=== PATIENT | female | born 1995 | race African-American/Black ===

== ENCOUNTER 2019-01-02 12:36 | Emergency (ER) | payer MEDICAID, OTHER ==
[~2019-01-02] VITALS: Ht 152.4 cm; Wt 81.2 kg
--- NOTE | 2019-01-02 12:45 | NUR ---
"[facility]HMA [facility]" PT AAOX4, PT ON INEZ VSS, PENDING MD KAPOOR
[2019-01-02] MEDS ORDERED: methylPREDNISolone SOD SUCC 125 MG/2ML VIAL IV ONE (13:00)
[2019-01-02] MEDS ORDERED: ALBUTEROL FS 2.5 MG/3 ML VIAL.NEB NEB ONE ×2 (13:00→20:00)
[2019-01-02] MEDS ORDERED: IV NS 0.9% 1,000 ML BAG IV ONE (13:00)
[2019-01-02] MEDS ORDERED: ALBUTEROL FS 2.5 MG/3 ML VIAL.NEB ONE ×3 (13:05→20:04)
[2019-01-02] MEDS ORDERED: methylPREDNISolone SOD SUCC 125 MG/2ML VIAL ONE (13:15)
[2019-01-02] MEDS ORDERED: ALBUTEROL FS 2.5 MG/3 ML VIAL.NEB CONTNEB ONE (14:30)
[2019-01-02] MEDS ORDERED: LORAZEPAM INJ 2 MG/ML VIAL ONE (15:52)
[2019-01-02] MEDS ORDERED: LORAZEPAM INJ 2 MG/ML VIAL IV ONE (16:00)
--- NOTE | 2019-01-02 16:24 | NUR ---
PER [facility], IF NO BED/HOSPITAL BY 2HRS PT CAN BE ADMITTED TO [facility]
--- NOTE | 2019-01-02 17:24 | NUR ---
PT GOING TO [facility] ROOM 312. REPORT TO BONI JIANG. [phone] PENDING AMBULANCE TRANSFER INFO.
--- NOTE | 2019-01-02 18:08 | NUR ---
[facility] ETA [id number]
--- NOTE | 2019-01-02 19:37 | NUR ---
[facility] UPDATED ETA WITHIN 30-45 MINS
--- NOTE | 2019-01-02 19:57 | NUR ---
CALLED FOR BREATHING [facility]
--- NOTE | 2019-01-02 20:06 | NUR ---
REPORT GIVEN TO ESTRADA MOCTEZUMA AT [facility]
[2019-01-02] MEDS ORDERED: ACETAMINOPHEN ES 500 MG TABLET ONE (20:15)
[2019-01-02] MEDS ORDERED: ACETAMINOPHEN ES 500 MG TABLET PO ONE (20:30)
[2019-01-02] MEDS ORDERED: LORAZEPAM 1 MG TABLET ONE (20:46)
[2019-01-02] MEDS ORDERED: LORAZEPAM 1 MG TABLET PO ONE (21:00)
[2019-01-02 21:15] VITALS: BP 167/65
--- NOTE | 2019-01-02 21:15 | NUR ---
PT TRANSPORTED TO [facility] VIA PRIVATE AMBULANCE, PT LEFT IN STABLE CONDITION, VSS, NAD NOTED. REPORT GIVEN TO STAFF.
== END 2019-01-02 21:16 | disposition short-term general hospital (02) ==
LOC: ER 12:38
DX: J45.901 Unspecified asthma with (acute) exacerbation (principal); F41.9 Anxiety disorder, unspecified
CPT/HCPCS: 71046; 84703; 94640; 94644; 94645; 96374; 96375; 99285; J2060; J2930; J7030